=== PATIENT | male | born 1990 | race Caucasian/White ===

== ENCOUNTER → 2024-04-17 09:14 | Outpatient (REF) | payer BC, SELFPAY | LOC: HWRCS 09:14 | PROVIDERS: ATTENDING PHYSICIAN Nuclear Medicine Nuclear Cardiology; FAMILY PHYSICIAN Family Medicine Sports Medicine | DX: Q23.1 Congenital insufficiency of aortic valve (principal); I10 Essential (primary) hypertension; I35.1 Nonrheumatic aortic (valve) insufficiency | CPT/HCPCS: 93306 ==

== ENCOUNTER → 2025-04-24 14:43 | Outpatient (REF) | payer BC, SELFPAY | LOC: HWRCS 14:43 | PROVIDERS: ATTENDING PHYSICIAN Nuclear Medicine Nuclear Cardiology; FAMILY PHYSICIAN Family Medicine Sports Medicine | DX: I10 Essential (primary) hypertension (principal); Q23.1 Congenital insufficiency of aortic valve; I77.810 Thoracic aortic ectasia | CPT/HCPCS: 93306 ==